=== PATIENT | female | born 1985 | race American Indian/Alaskan Native ===

== ENCOUNTER 2021-08-23 09:41 | Emergency (ER) | payer OTHER ==
[2021-08-23 09:59] VITALS: BP 142/109
[2021-08-23] MEDS ORDERED: LORazepam 1 MG TAB PO ONE (10:11)
[2021-08-23] MEDS ORDERED: hydrOXYzine PAMOATE 25 MG CAP PO ONE (10:11)
--- NOTE | 2021-08-23 10:15 | Emergency Department Report ---
ED Anxiety HPI - General Chief Complaint: Anxiety Stated Complaint: CHEST PAIN Time Seen by Provider: 08/23/21 10:14 Source: patient Mode of arrival: Wheelchair - History of Present Illness Initial Comments: Patient is a 35-year-old -[place] female that comes to the emergency room hyperventilating, having chest pain, reporting shortness of breath. She has a history of anxiety. She is on Wellbutrin. She is accompanied by a friend. She states that she got a steroid shot 2 days ago after being seen in the urgent care for hives. She is unsure what caused the hives. Her anxiety seems to be increased since she got the steroid injection. No SI no HI no AV hallucinations. Complaint: anxiety -: Sudden, hour(s) Place: home Previous History of Same: Yes Severity: moderate Quality: constant Provoking factors: none known Improves With: nothing Worsens With: nothing Associated symptoms: chest pain, shortness of breath, palpitations, other (Hyperventilation) - Related Data Home Medications: Previous Rx's Medication Instructions Recorded Last Taken Type Ibuprofen [Motrin] 600 mg PO Q8H PRN #20 tablet 03/02/15 Unknown Rx traMADoL [Ultram] 50 mg PO Q6HR PRN #10 tablet 15 Unknown Rx Allergies/Adverse Reactions: Allergies Allergy/AdvReac Type Severity Reaction Status Date / Time No Known Allergies Allergy Unverified 03/02/15 13:24 ED Review of Systems ROS: Stated complaint: CHEST PAIN Other details as noted in HPI Comment: All other systems reviewed and negative ED Past Medical Hx - Past Medical History Previous Medical History?: Yes Hx Psychiatric Treatment: Yes (anxiety/depression) Additional medical history: SVT - Surgical History Past Surgical History?: Yes Additional Surgical History: wrist surgery - Family History Family history: no significant - Social History Smoking Status: Never Smoker Substance Use Type: None - Medications Home Medications: Home Medications Medication Instructions Recorded Confirmed Last Taken Type Ibuprofen [Motrin] 600 mg PO Q8H PRN #20 tablet 03/02/15 Unknown Rx traMADoL [Ultram] 50 mg PO Q6HR PRN #10 tablet 15/15 Unknown Rx ED Physical Exam - General Limitations: No Limitations General appearance: alert, in no apparent distress, anxious - Head Head exam: Present: atraumatic, normocephalic - Eye Eye exam: Present: normal appearance - ENT ENT exam: Present: mucous membranes moist - Neck Neck exam: Present: normal inspection - Respiratory Respiratory exam: Present: normal lung sounds bilaterally. Absent: respiratory distress - Cardiovascular Cardiovascular Exam: Present: regular rate, normal rhythm. Absent: systolic murmur, diastolic murmur, rubs, gallop - GI/Abdominal GI/Abdominal exam: Present: soft, normal bowel sounds - Extremities Exam Extremities exam: Present: normal inspection - Back Exam Back exam: Present: normal inspection - Neurological Exam Neurological exam: Present: alert, oriented X3 - Psychiatric Psychiatric exam: Present: normal affect, normal mood - Skin Skin exam: Present: warm, dry, intact, normal color. Absent: rash ED Course Vital Signs 08/23/21 09:52 Temperature 98.7 F Pulse Rate 102 H Respiratory 22 Rate Blood Pressure 142/109 Blood Pressure 142/109 [Right] O2 Sat by Pulse 100 Oximetry ED Medical Decision Making - Lab Data Result diagrams: 08/23/21 10:17 08/23/21 10:17 - EKG Data EKG shows normal: sinus rhythm Rate: normal - EKG Data When compared to previous EKG there are: no significant change Interpretation: no acute changes - Radiology Data Radiology results: report reviewed, image reviewed [facility] - Medical Decision Making Labs 08/23/21 08/23/21 08/23/21 10:17 10:17 10:17 WBC 5.5 RBC 5.04 H Hgb 13.1 Hct 39.3 MCV 78 L MCH 26 L MCHC 33 RDW 14.5 Plt Count 231 Sodium 136 L Potassium 3.8 Chloride 104.0 Carbon Dioxide 19 L Anion Gap 17 BUN 11 Creatinine 0.8 Estimated GFR > 60 BUN/Creatinine Ratio 14 Glucose 81 Calcium 9.3 TSH 1.670 HCG, Qual 08/23/21 10:17 WBC RBC Hgb Hct MCV MCH MCHC RDW Plt Count Sodium Potassium Chloride Carbon Dioxide Anion Gap BUN Creatinine Estimated GFR BUN/Creatinine Ratio Glucose Calcium TSH HCG, Qual Negative Vital Signs 08/23/21 09:52 Temperature 98.7 F Pulse Rate 102 H Respiratory 22 Rate Blood Pressure 142/109 Blood Pressure 142/109 [Right] O2 Sat by Pulse 100 Oximetry Labs noted UA noted Medicated with Vistaril and Ativan in the ER. Patient improved. I discussed with the patient steroids and anxiety. She needs to just give this time to wear off. Patient is being discharged home with discharge plan of care including diet, activity, medications and follow-up. She and her friend verbalized understanding of discharge plan. On discharge patient is ambulatory, [id number] nontoxic and taking p.o. Nurses have been asked to recheck her vital signs on discharge - Differential Diagnosis Anxiety Critical care attestation.: If time is entered above; I have spent that time in minutes in the direct care of this critically ill patient, excluding procedure time. ED Disposition Clinical Impression: Anxiety, Panic attack Disposition: HOME / SELF CARE / HOMELESS Is pt being admited?: No Does the pt Need Aspirin: No Condition: Stable Instructions: Managing Anxiety, Adult Additional Instructions: Avoid caffeine and other stimulants exercise daily Continue your Wellbutrin Follow-up with your provider regarding your medications and anxiety You can use Benadryl if you get hives. Stay well-hydrated with water Remember that steroids can provoke anxiety in someone that does not have anxiety little on someone who does. Referral to PCP below Referrals: TALAT BENAVIDES MD [Primary Care Provider] - 3-5 Days ROSA AGUILAR MD [Staff Physician] - 3-5 Days Forms: Work/School Release Form(ED), Accompanied Note Time of Disposition: 11:38
--- NOTE | 2021-08-23 10:49 | Electrocardiograph Report ---
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
--- NOTE | 2021-08-23 11:20 | XRay Report ---
CHEST 2 VIEWS INDICATION: cp. COMPARISON: None. FINDINGS: Support devices: None. Heart: Within normal limits. Lungs/Pleura: No acute air space or interstitial disease. No significant pleural effusion. IMPRESSION: No acute findings. Signer Name: Carlos Levine MD Signed: 08/23/2021 11:14 AM Workstation Name: [email or web address]
[2021-08-23 11:28] LABS: BUN/Creatinine Ratio 14; Blood Urea Nitrogen 11 mg/dL (7-17); Calcium 9.3 mg/dL (8.4-10.2); Hemolysis Index 5
[2021-08-23 11:29] LABS: Hematocrit 39.3 % (30.3-42.9); Hemoglobin 13.1 gm/dl (10.1-14.3); Mean Corpuscular HGB Conc 33 % (30-34); Mean Corpuscular Volume 78 fl (79-97); Platelet Count 231 K/mm3 (140-440); Red Blood Count 5.04 M/mm3 (3.65-5.03); Red Cell Distribution Width 14.5 % (13.2-15.2)
== END 2021-08-23 12:03 | disposition home or self-care (01) ==
LOC: ED 09:41
DX: F41.9 Anxiety disorder, unspecified (principal); F41.0 Panic disorder [episodic paroxysmal anxiety]
CPT/HCPCS: 36415; 71046; 80048; 84443; 84703; 85027; 93005; 99284